=== PATIENT | female | born 1990 | race African-American/Black ===

== ENCOUNTER 2016-09-12 01:10 | Emergency (ER) | payer SELFPAY ==
[2016-09-12 01:21] VITALS: BP 115/68
[2016-09-12] MEDS ORDERED: Penicillin V Potassium 500 MG Tab PO ONE (01:39)
[2016-09-12] MEDS ORDERED: Naproxen 500 MG Tab PO ONE (01:40)
--- NOTE | 2016-09-12 01:44 | EDM.PDOC ---
ED HPI GENERAL MEDICAL PROBLEM - General Chief Complaint: ENT Problem Stated Complaint: TOOTHACHE Time Seen by Provider: 09/12/16 01:24 Source of Information: Reports: Patient, Old Records, RN Notes Reviewed History Limitations: Reports: No Limitations - History of Present Illness INITIAL COMMENTS - FREE TEXT/NARRATIVE: The patient states that she has a lower left toothache, a headache, sore throat , and a cough. She states that she has had a lower left toothache for about 2 months - medical records indicate that the patient was seen in this ED 06/02/2016 for a dental abscess to tooth #19. The abscess was drained, the patient started on Augmentin and ibuprofen, and the patient instructed to followup with a dentist within a week. The patient states that she has not, but that she has an appointment to see a dentist around October 01. She states that she has had a headache felt all over her head, pounding, for about 3 days. She states that she does not ordinarily suffer from headaches. She reports a sore throat for the past 3 days, and a cough occasionally productive of white sputum for the past 4-5 days. No recent fever, and she is afebrile here in the ED. The patient does not have a PCP. Left Lower Posterior Oral/Mouth Pain Score (Numeric/FACES): 10 - Related Data Allergies Allergy/AdvReac Type Severity Reaction Status Date / Time No Known Allergies Allergy Verified 09/12/16 01:16 Home Meds: Home Meds Naproxen 500 mg PO Q12H PRN #20 tablet 09/12/16 [Rx] Penicillin V Potassium [IJD: Penicillin V Potassium] 1 tab PO Q6H #40 tab [Rx] Past Medical History - Past Surgical History GI Surgical History: Reports: Appendectomy Social & Family History - Tobacco Use Smoking Status *Q: Current Every Day Smoker Years of Tobacco use: 5 Packs/Tins Daily: 0.5 - Caffeine Use Caffeine Use: Reports: Soda - Alcohol Use Alcohol Use History: Yes Days Per Week of Alcohol Use: 2 Number of Drinks Per Day: 10 Total Drinks Per Week: 20 Alcohol Use Frequency: Socially - Recreational Drug Use Recreational Drug Use: Yes Drug Use in Last 12 Months: No Recreational Drug Type: Reports: Marijuana/Hashish - Living Situation & Occupation Living situation: Reports: Single, Alone Occupation: Unemployed ED ROS ENT - Review of Systems Review Of Systems: See Below Constitutional: Reports: No Symptoms HEENT: Reports: Dental Pain (as per the HPI) Respiratory: Reports: Cough (as per the HPI) Cardiovascular: Reports: No Symptoms Endocrine: Reports: No Symptoms GI/Abdominal: Reports: No Symptoms : Reports: No Symptoms Musculoskeletal: Reports: No Symptoms Skin: Reports: No Symptoms Neurological: Reports: Headache (as per the HPI) Psychiatric: Reports: No Symptoms Hematologic/Lymphatic: Reports: No Symptoms Immunologic: Reports: No Symptoms ED EXAM, ENT - Physical Exam Exam: See Below Exam Limited By: No Limitations General Appearance: Alert, WD/WN, No Apparent Distress Eye Exam: Bilateral Eye: Normal Inspection Ears: Normal External Exam, Normal Canal, Hearing Grossly Normal, Normal TMs Nose: Normal Inspection, Normal Mucousa, No Blood Mouth/Throat: Normal Inspection, Normal Lips, Normal Oropharynx, Other (Tooth # 1 absent. Teeth #2, 3, 4, 5 with fillings. Teeth #12, 13, 14, 15 with fillings. Teeth #16, 17 absent. Tooth #19 (the tooth of concern) with filling. There is a gingival swelling at this site, but no pointing. Tooth # 20 with filling. Teeth #29, 30 with fillings. Tooth #32 absent. All teeth with EXTENSIVE plaque buildup.) Head: Atraumatic, Normocephalic Neck: Normal Inspection, Supple, Non-Tender, Full Range of Motion. No: Lymphadenopathy (L), Lymphadenopathy (R) Respiratory/Chest: No Respiratory Distress, Lungs Clear, Normal Breath Sounds, No Accessory Muscle Use Cardiovascular: Normal Peripheral Pulses, Regular Rate, Rhythm, No Gallop, No JVD, No Murmur, No Rub Neurological: Alert, Normal Cognition Psychiatric: Normal Affect Skin: Warm, Dry, Intact, Normal Color, No Rash Course - Vital Signs Last Recorded V/S: Last Vital Signs Temp 36.9 C 09/12/16 01:17 Pulse 95 09/12/16 01:17 Resp 18 09/12/16 01:17 BP 115/68 09/12/16 01:17 Pulse Ox 99 09/12/16 01:17 - Orders/Labs/Meds Orders: Active Orders 24 hr Category Date Time Status CULTURE STREP A CONFIRMATION [RM] Stat Lab 09/12/16 01:37 Results STREP SCRN A RAPID W CULT CONF [RM] Stat Lab 09/12/16 01:37 Results Meds: Medications Discontinued Medications Generic Name Dose Route Start Last Admin Trade Name Frieda PRN Reason Stop Dose Admin Naproxen 500 mg 09/12/16 01:40 09/12/16 01:43 Naprosyn PO 09/12/16 01:41 500 mg ONETIME ONE Administration Penicillin V Potassium 500 mg 09/12/16 01:39 09/12/16 01:43 Veetids PO 09/12/16 01:40 500 mg ONETIME ONE Administration - Re-Assessments/Exams Free Text/Narrative Re-Assessment/Exam: 09/12/16 02:16 Rapid strep is negative. The patient will be discharged home with a list of dentists that she can followup with. I will e-prescribe penicillin and naproxen. Departure - Departure Time of Disposition: 02:16 Disposition: Home, Self-Care 01 Condition: good Clinical Impression: Dental infection, Headache, Sore throat, Cough - Discharge Information Forms: ED Department Discharge Additional Instructions: You were seen in the emergency room for a lower left toothache, headache, sore throat, and cough. On examination, you have an infection of tooth #19. You have been started on the antibiotic penicillin. Take one tablet every 6 hours, as prescribed. Finish the entire prescription unless told otherwise by a dentist. You have been started on the pain medicine and naproxen. Take one tablet every 12 hours, with food, as needed for pain. A rapid strep test was negative. You do not have strep throat. Your lungs are clear, and her oxygen saturation is normal. You do not have pneumonia. Firstly, there are no good medicines to treat sore throats or cough. We do not recommend you take any [id number] cough or cold remedies - they simply don 't work. It is IMPERATIVE that you followup with a dentist within 10 days. Your dental condition will not cure itself. If any other problems, please do not hesitate to return to the ER. - My Orders Last 24 Hours: My Active Orders 09/12/16 01:37 CULTURE STREP A CONFIRMATION [RM] Stat STREP SCRN A RAPID W CULT CONF [RM] Stat - Assessment/Plan Last 24 Hours: My Active Orders 09/12/16 01:37 CULTURE STREP A CONFIRMATION [RM] Stat STREP SCRN A RAPID W CULT CONF [RM] Stat
== END 2016-09-12 02:30 | disposition home or self-care (01) ==
LOC: JD.ED 01:10
DX: K04.7 Periapical abscess without sinus (principal); J02.9 Acute pharyngitis, unspecified; R51 Headache; F17.210 Nicotine dependence, cigarettes, uncomplicated; Z90.49 Acquired absence of other specified parts of digestive tract
CPT/HCPCS: 87081; 87430; 99283; A9270

== ENCOUNTER 2016-12-23 09:47 | Emergency (ER) | payer SELFPAY ==
--- NOTE | 2016-12-23 10:07 | EDM.PDOC ---
ED HPI GENERAL MEDICAL PROBLEM - General Chief Complaint: Drug or Alcohol Abuse Stated Complaint: VOMITING Time Seen by Provider: 12/23/16 09:58 - History of Present Illness INITIAL COMMENTS - FREE TEXT/NARRATIVE: 26-year-old female presents emergency room with severe nausea vomiting and believes she has alcohol poisoning. Patient had way too much to drink last night. For the last couple hours she's had significant nausea vomiting now she has severe dry heaves. She denies fevers or chills. No diarrhea or constipation. She has developed some discomfort in her abdomen after starting to throw up. Abdomen Pain Score (Numeric/FACES): 5 - Related Data Allergies Allergy/AdvReac Type Severity Reaction Status Date / Time No Known Allergies Allergy Verified 09/12/16 01:16 Past Medical History Other HEENT History: dental issues - Past Surgical History GI Surgical History: Reports: Appendectomy Social & Family History - Tobacco Use Smoking Status *Q: Current Every Day Smoker Years of Tobacco use: 5 Packs/Tins Daily: 0.5 Used Tobacco, but Quit: No - Caffeine Use Caffeine Use: Reports: Soda - Alcohol Use Days Per Week of Alcohol Use: 2 Number of Drinks Per Day: 10 Total Drinks Per Week: 20 - Recreational Drug Use Recreational Drug Use: Yes Drug Use in Last 12 Months: No Recreational Drug Type: Reports: Marijuana/Hashish - Living Situation & Occupation Living situation: Reports: Single, Alone Occupation: Unemployed ED ROS GENERAL - Review of Systems Review Of Systems: See Below Constitutional: Reports: No Symptoms Respiratory: Reports: No Symptoms Cardiovascular: Reports: No Symptoms GI/Abdominal: Reports: Abdominal Pain, Nausea, Vomiting. Denies: Constipation, Diarrhea : Reports: No Symptoms ED EXAM, GENERAL - Physical Exam Exam: See Below General Appearance: Mild Distress (From the Nausea vomiting) Head: Atraumatic, Normocephalic Neck: Normal Inspection, Supple, Non-Tender, Full Range of Motion Respiratory/Chest: No Respiratory Distress, Lungs Clear, Normal Breath Sounds Cardiovascular: Regular Rate, Rhythm, No Edema, No Murmur GI/Abdominal: Normal Bowel Sounds, Soft, Other (She has diffuse discomfort no rebound or guarding noted.) Course - Vital Signs Last Recorded V/S: Last Vital Signs Temp 35.8 C 12/23/16 09:52 Pulse 106 H 12/23/16 09:52 Resp 18 12/23/16 09:52 BP 131/100 H 12/23/16 09:52 Pulse Ox 100 12/23/16 09:52 - Orders/Labs/Meds Labs: Laboratory Tests 12/23/16 12/23/16 Range/Units 09:50 09:50 WBC 23.86 H (3.98-10.04) K/mm3 RBC 4.76 (3.98-5.22) M/mm3 Hgb 13.3 (11.2-15.7) gm/L Hct 40.3 (34.1-44.9) % MCV 84.7 (79.4-94.8) fl MCH 27.9 (25.6-32.2) pg MCHC 33.0 (32.2-35.5) g/dl RDW Std Deviation 40.8 (36.4-46.3) fL Plt Count 567 H (182-369) K/mm3 MPV 8.4 L (9.4-12.3) fl Neutrophils % (Manual) 88 H (40-60) % Band Neutrophils % 0 (0-10) % Lymphocytes % (Manual) 6 L (20-40) % Atypical Lymphs % 2 % Monocytes % (Manual) 4 (2-10) % Eosinophils % (Manual) 0 L (0.7-5.8) % Basophils % (Manual) 0 L (0.1-1.2) Platelet Estimate Increased Anisocytosis 1+ slight RBC Morph Comment Abnormal Sodium 139 (136-145) mEq/L Potassium 3.7 (3.5-5.1) mEq/L Chloride 100 (98-107) mEq/L Carbon Dioxide 19 L (21-32) mEq/L Anion Gap 23.7 H (5-15) BUN 15 (7-18) mg/dL Creatinine 1.1 H (0.55-1.02) mg/dL Est Cr Clr Drug Dosing 62.37 mL/min Estimated GFR (MDRD) > 60 (>60) mL/min BUN/Creatinine Ratio 13.6 L (14-18) Glucose 92 (74-106) mg/dL Calcium 9.3 (8.5-10.1) mg/dL Total Bilirubin 0.5 (0.2-1.0) mg/dL AST 36 (15-37) U/L ALT 27 (14-59) U/L Alkaline Phosphatase 23 L (46-116) U/L Total Protein 8.3 H (6.4-8.2) g/dl Albumin 4.8 (3.4-5.0) g/dl Globulin 3.5 gm/dL Albumin/Globulin Ratio 1.4 (1-2) Ethyl Alcohol 0.00 (0.00) gm% Meds: Medications Discontinued Medications Generic Name Dose Route Start Last Admin Trade Name Frieda PRN Reason Stop Dose Admin Lactated Ringer's 1,000 mls @ 999 mls/hr 12/23/16 10:08 12/23/16 10:17 Ringers, Lactated IV 12/23/16 11:08 999 mls/hr .BOLUS ONE Administration Ondansetron HCl 4 mg 12/23/16 10:08 12/23/16 10:16 Zofran IVPUSH 12/23/16 10:09 4 mg ONETIME ONE Administration Sucralfate 1 gm 12/23/16 11:21 12/23/16 11:28 Carafate PO 12/23/16 11:22 1 gm ONETIME ONE Administration - Re-Assessments/Exams Free Text/Narrative Re-Assessment/Exam: 12/23/16 11:42 Patient was doing much better after receiving a liter fluid 4 mg of Zofran. We did give her some Carafate to help with the burning sensation in her stomach and lower esophagus. Did discuss her elevated white count believe this is probably stress reaction but it is little in the high side for just this the patient agrees to return to the emergency room if not better in 1224 hrs. and will come in sooner if getting worse. Did offer the patient prescription for Zofran and she declined this. She wants to go home and get some sleep. Departure - Departure Time of Disposition: 11:39 Disposition: Home, Self-Care 01 Clinical Impression: Hangover effect - Discharge Information Referrals: PCP,None [Primary Care Provider] - Additional Instructions: Return to the emergency room with any questions problems worsening symptoms. Go home and get some sleep. Clear liquid diet for the next 12-24 hours then slowly advance as tolerated
[2016-12-23] MEDS ORDERED: Lactated Ringers 1,000 ML IV ONE (10:08)
[2016-12-23] MEDS ORDERED: Ondansetron 4 MG/2 ML SDV IVPUSH ONE (10:08)
[2016-12-23] MEDS ORDERED: Sucralfate Suspension 1 GM/10 ML Cup PO ONE (11:21)
[2016-12-23 11:52] VITALS: BP 117/76
== END 2016-12-23 11:45 | disposition home or self-care (01) ==
LOC: JD.ED 09:47
DX: F10.129 Alcohol abuse with intoxication, unspecified (principal); F17.210 Nicotine dependence, cigarettes, uncomplicated; Z90.49 Acquired absence of other specified parts of digestive tract
CPT/HCPCS: 36415; 80053; 85025; 96361; 96374; 99284; A9270; G0480; J2405; J7120

== ENCOUNTER 2017-02-11 13:58 | Emergency (ER) | payer SELFPAY ==
[2017-02-11 14:09] VITALS: BP 108/81
--- NOTE | 2017-02-11 15:41 | EDM.PDOC ---
ED HPI GENERAL MEDICAL PROBLEM - General Chief Complaint: Abdominal Pain Stated Complaint: ABDOMINAL PAIN/CRAMPING Time Seen by Provider: 02/11/17 14:06 Source of Information: Reports: Patient History Limitations: Reports: No Limitations - History of Present Illness INITIAL COMMENTS - FREE TEXT/NARRATIVE: The patient presents with lower abdominal pain and pelvic pain. This has been going on for a few days. She has no nausea, vomiting, dysuria or hematuria. She is 5 days late on her period. She is concerned she my be . She is usually regular. She still has her appendix and gallbladder. She says she has some light discharge. Onset: Gradual Duration: Day(s): Location: Reports: Abdomen Quality: Reports: Sharp Severity: Moderate Improves with: Reports: None Worsens with: Reports: None Associated Symptoms: Denies: Chest Pain, Fever/Chills, Nausea/Vomiting, Shortness of Breath Lower Abdomen Pain Score (Numeric/FACES): 5 - Related Data Allergies Allergy/AdvReac Type Severity Reaction Status Date / Time No Known Allergies Allergy Verified 09/12/16 01:16 Home Meds: Home Meds . [No Known Home Meds] 02/11/17 [History] Past Medical History Other HEENT History: dental issues - Past Surgical History GI Surgical History: Reports: Appendectomy Social & Family History - Family History Family Medical History: Noncontributory - Tobacco Use Smoking Status *Q: Current Every Day Smoker Years of Tobacco use: 13 Packs/Tins Daily: 1 Used Tobacco, but Quit: No - Caffeine Use Caffeine Use: Reports: Coffee, Soda - Alcohol Use Days Per Week of Alcohol Use: 2 Number of Drinks Per Day: 10 Total Drinks Per Week: 20 - Recreational Drug Use Recreational Drug Use: Yes Drug Use in Last 12 Months: No Recreational Drug Type: Reports: Cocaine, Marijuana/Hashish Recreational Drug Use Frequency: Daily - Living Situation & Occupation Living situation: Reports: Single, Alone Occupation: Unemployed ED ROS GENERAL - Review of Systems Review Of Systems: See Below Constitutional: Reports: No Symptoms HEENT: Reports: No Symptoms Respiratory: Reports: No Symptoms Cardiovascular: Reports: No Symptoms Endocrine: Reports: No Symptoms GI/Abdominal: Reports: Abdominal Pain. Denies: Nausea, Vomiting : Reports: No Symptoms Musculoskeletal: Reports: No Symptoms Skin: Reports: No Symptoms ED EXAM, GI/ABD - Physical Exam Exam: See Below Exam Limited By: No Limitations General Appearance: Alert, No Apparent Distress Ears: Normal External Exam Nose: Normal Inspection Head: Atraumatic, Normocephalic Neck: Normal Inspection Respiratory/Chest: No Respiratory Distress, Lungs Clear, Normal Breath Sounds Cardiovascular: Regular Rate, Rhythm, No Edema, No Murmur GI/Abdominal Exam: Soft, No Organomegaly, No Mass, Tender (Mild tenderness to the lower abdomen) Back Exam: Normal Inspection Course - Vital Signs Last Recorded V/S: Last Vital Signs Temp 97.6 F 02/11/17 14:03 Pulse 81 02/11/17 14:03 Resp 16 02/11/17 14:03 BP 108/81 02/11/17 14:03 Pulse Ox 99 02/11/17 14:03 - Orders/Labs/Meds Labs: Laboratory Tests 02/11/17 02/11/17 Range/Units 14:29 14:52 WBC 8.03 (3.98-10.04) K/mm3 RBC 4.58 (3.98-5.22) M/mm3 Hgb 12.9 (11.2-15.7) gm/L Hct 39.2 (34.1-44.9) % MCV 85.6 (79.4-94.8) fl MCH 28.2 (25.6-32.2) pg MCHC 32.9 (32.2-35.5) g/dl RDW Std Deviation 40.3 (36.4-46.3) fL Plt Count 479 H (182-369) K/mm3 MPV 8.3 L (9.4-12.3) fl Neut % (Auto) 60.3 (34.0-71.1) % Lymph % (Auto) 30.8 (19.3-51.7) % [place] % (Auto) 6.7 (4.7-12.5) % Eos % (Auto) 1.1 (0.7-5.8) Baso % (Auto) 0.7 (0.1-1.2) % Neut # (Auto) 4.84 (1.56-6.13) K/mm3 Lymph # (Auto) 2.47 (1.18-3.74) K/mm3 [place] # (Auto) 0.54 H (0.24-0.36) K/mm3 Eos # (Auto) 0.09 (0.04-0.36) K/mm3 Baso # (Auto) 0.06 (0.01-0.08) K/mm3 Sodium 141 (136-145) mEq/L Potassium 4.1 (3.5-5.1) mEq/L Chloride 106 (98-107) mEq/L Carbon Dioxide 27 (21-32) mEq/L Anion Gap 12.1 (5-15) BUN 13 (7-18) mg/dL Creatinine 1.1 H (0.55-1.02) mg/dL Est Cr Clr Drug Dosing 62.37 mL/min Estimated GFR (MDRD) > 60 (>60) mL/min BUN/Creatinine Ratio 11.8 L (14-18) Glucose 65 L (74-106) mg/dL Calcium 9.2 (8.5-10.1) mg/dL Total Bilirubin 0.8 (0.2-1.0) mg/dL AST 18 (15-37) U/L ALT 17 (14-59) U/L Alkaline Phosphatase 25 L (46-116) U/L Total Protein 7.2 (6.4-8.2) g/dl Albumin 3.9 (3.4-5.0) g/dl Globulin 3.3 gm/dL Albumin/Globulin Ratio 1.2 (1-2) Lipase 148 (73-393) U/L HCG, Quant < 1.0 mIU/mL - Re-Assessments/Exams Free Text/Narrative Re-Assessment/Exam: 02/11/17 15:44 Her CBC and CMP look good. Her HCG was negative. She had to go so she did not have time to give us a UA. I was going to offer a pelvic but she had to go. Departure - Departure Time of Disposition: 15:45 Disposition: Home, Self-Care 01 Condition: Good Clinical Impression: Lower abdominal pain - Discharge Information Referrals: PCP,None [Primary Care Provider] - Sudha Sanchez PA-C [Physician [employer]] - 1 Week Forms: ED Department Discharge Additional Instructions: Take tylenol or motrin for pain. Follow up with Sudha Sanchez within 1 week if you are not better. Please return if you are worse.
== END 2017-02-11 16:05 | disposition home or self-care (01) ==
LOC: JD.ED 13:58
DX: R10.30 Lower abdominal pain, unspecified (principal); F17.210 Nicotine dependence, cigarettes, uncomplicated; Z90.49 Acquired absence of other specified parts of digestive tract
CPT/HCPCS: 36415; 80053; 83690; 84702; 85025; 99282; 99284

== ENCOUNTER 2017-06-21 10:36 | Emergency (ER) | payer SELFPAY ==
[2017-06-21 10:47] VITALS: BP 117/100
[2017-06-21] MEDS ORDERED: Ondansetron 4 MG Tab.DIS PO ONE (12:13)
[2017-06-21] MEDS ORDERED: Acetaminophen/HYDROcodone 325-5 MG Tab PO ONE (12:13)
--- NOTE | 2017-06-21 12:16 | EDM.PDOC ---
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 Increasing pain throughout the course week. Pressure with ambulating. History of ovarian cysts left-sided. Last menstrual cycle was 03 June with no abnormalities. History of HPV and Chlamydia. Denies Fever, chills, painful urination, nausea, vomiting, and diarrhea. pelvic region Pain Score (Numeric/FACES): 8 - Related Data Allergies Allergy/AdvReac Type Severity Reaction Status Date / Time No Known Allergies Allergy Verified 06/21/17 10:47 Home Meds: Home Meds metroNIDAZOLE [Flagyl] 500 mg PO Q12H #14 tab 06/21/17 [Rx] Past Medical History - Past Health History Medical/Surgical History: Denies Medical/Surgical History Other HEENT History: dental issues Other Genitourinary History: ovarian cyst - Past Surgical History GI Surgical History: Reports: Appendectomy Social & Family History - Family History Family Medical History: Noncontributory - Tobacco Use Smoking Status *Q: Current Every Day Smoker Years of Tobacco use: 5 Packs/Tins Daily: 1 Used Tobacco, but Quit: No - Caffeine Use Caffeine Use: Reports: Soda - Alcohol Use Days Per Week of Alcohol Use: 2 Number of Drinks Per Day: 10 Total Drinks Per Week: 20 - Recreational Drug Use Recreational Drug Use: Yes Drug Use in Last 12 Months: No Recreational Drug Type: Reports: Marijuana/Hashish Recreational Drug Use Frequency: Daily Recreational Drug Last Use: 06/21/17 - Living Situation & Occupation Living situation: Reports: Single, Alone Occupation: Unemployed ED ROS GENERAL - Review of Systems Review Of Systems: ROS reveals no pertinent complaints other than HPI. ED EXAM, RENAL/ - Physical Exam Exam: See Below Exam Limited By: Intoxication General Appearance: Alert, WD/WN, No Apparent Distress Ears: Hearing Grossly Normal Nose: Normal Inspection Throat/Mouth: Normal Inspection, Normal Oropharynx, Normal Voice, No Airway Compromise Head: Atraumatic, Normocephalic Neck: Normal Inspection, Supple, Non-Tender Respiratory/Chest: No Respiratory Distress, Lungs Clear, Normal Breath Sounds, No Accessory Muscle Use, Chest Non-Tender Cardiovascular: Normal Peripheral Pulses, Regular Rate, Rhythm, No Murmur GI/Abdominal: Normal Bowel Sounds, Soft, No Organomegaly, No Distention, Tender (right adnexa and suprapubic region. ) (Female) Exam: Normal External Exam, Adnexal Tenderness (Right sided), Vaginal Discharge (White, watery). No: Cervical Dilatation, Cervical Discharge , Cervical Fluid, Cervix Motion Tenderness, Vaginal Lesions, Vaginal Tears Back Exam: Normal Inspection. No: CVA Tenderness (L), CVA Tenderness (R) Neurological: Alert, Oriented, CN II-XII Intact, Normal Cognition, No Motor/ Sensory Deficits Psychiatric: Normal Affect, Anxious Skin Exam: Warm, Dry, Intact, Normal Color, No Rash Course - Vital Signs Last Recorded V/S: Last Vital Signs Temp 98.3 F 06/21/17 10:43 Pulse 100 06/21/17 10:43 Resp 18 06/21/17 10:43 BP 117/100 H 06/21/17 10:43 Pulse Ox 100 06/21/17 10:43 Orthostatic Blood Pressure [ 110/77 Standing] Orthostatic Blood Pressure [ 115/71 Sitting] Orthostatic Blood Pressure [ 110/73 Supine] - Orders/Labs/Meds Labs: Laboratory Tests 06/21/17 06/21/17 06/21/17 Range/Units 10:55 10:55 12:40 WBC 15.75 H (3.98-10.04) K/mm3 RBC 4.92 (3.98-5.22) M/mm3 Hgb 13.7 (11.2-15.7) gm/L Hct 41.9 (34.1-44.9) % MCV 85.2 (79.4-94.8) fl MCH 27.8 (25.6-32.2) pg MCHC 32.7 (32.2-35.5) g/dl RDW Std Deviation 41.6 (36.4-46.3) fL Plt Count 452 H (182-369) K/mm3 MPV 8.1 L (9.4-12.3) fl Neut % (Auto) 76.0 H (34.0-71.1) % Lymph % (Auto) 18.3 L (19.3-51.7) % Hancock % (Auto) 4.6 L (4.7-12.5) % Eos % (Auto) 0.4 L (0.7-5.8) Baso % (Auto) 0.4 (0.1-1.2) % Neut # (Auto) 11.97 H (1.56-6.13) K/mm3 Lymph # (Auto) 2.88 (1.18-3.74) K/mm3 Hancock # (Auto) 0.72 H (0.24-0.36) K/mm3 Eos # (Auto) 0.07 (0.04-0.36) K/mm3 Baso # (Auto) 0.07 (0.01-0.08) K/mm3 Sodium (136-145) mEq/L Potassium (3.5-5.1) mEq/L Chloride (98-107) mEq/L Carbon Dioxide (21-32) mEq/L Anion Gap (5-15) BUN (7-18) mg/dL Creatinine (0.55-1.02) mg/dL Est Cr Clr Drug Dosing mL/min Estimated GFR (MDRD) (>60) mL/min BUN/Creatinine Ratio (14-18) Glucose (74-106) mg/dL Calcium (8.5-10.1) mg/dL Total Bilirubin (0.2-1.0) mg/dL AST (15-37) U/L ALT (14-59) U/L Alkaline Phosphatase (46-116) U/L C-Reactive Protein (<1.0) mg/dL Total Protein (6.4-8.2) g/dl Albumin (3.4-5.0) g/dl Globulin gm/dL Albumin/Globulin Ratio (1-2) Urine Color Yellow (Yellow) Urine Appearance Clear (Clear) Urine pH 6.0 (5.0-8.0) Ur Specific [place] > or = 1.030 (1.005-1.030) Urine Protein 1+ H (Negative) Urine Glucose (UA) Negative (Negative) Urine Ketones 3+ H (Negative) Urine Occult Blood 1+ H (Negative) Urine Nitrite Negative (Negative) Urine Bilirubin 1+ H (Negative) Urine Urobilinogen 1.0 (0.2-1.0) Ur Leukocyte Esterase Negative (Negative) Urine RBC 5-10 H (0-5) /hpf Urine WBC 0-5 (0-5) /hpf Ur Epithelial Cells 5-10 H (0-5) /hpf Urine Bacteria Few (FEW) /hpf Urine Mucus Moderate H (FEW) /hpf Urine HCG, Qual Negative (NEGATIVE) C trachomatis DNA (PCR) N gonorrhoeae DNA (PCR) 06/21/17 06/21/17 Range/Units 12:40 13:30 WBC (3.98-10.04) K/mm3 RBC (3.98-5.22) M/mm3 Hgb (11.2-15.7) gm/L Hct (34.1-44.9) % MCV (79.4-94.8) fl MCH (25.6-32.2) pg MCHC (32.2-35.5) g/dl RDW Std Deviation (36.4-46.3) fL Plt Count (182-369) K/mm3 MPV (9.4-12.3) fl Neut % (Auto) (34.0-71.1) % Lymph % (Auto) (19.3-51.7) % Hancock % (Auto) (4.7-12.5) % Eos % (Auto) (0.7-5.8) Baso % (Auto) (0.1-1.2) % Neut # (Auto) (1.56-6.13) K/mm3 Lymph # (Auto) (1.18-3.74) K/mm3 Hancock # (Auto) (0.24-0.36) K/mm3 Eos # (Auto) (0.04-0.36) K/mm3 Baso # (Auto) (0.01-0.08) K/mm3 Sodium 139 (136-145) mEq/L Potassium 3.9 (3.5-5.1) mEq/L Chloride 102 (98-107) mEq/L Carbon Dioxide 22 (21-32) mEq/L Anion Gap 18.9 H (5-15) BUN 9 (7-18) mg/dL Creatinine 0.9 (0.55-1.02) mg/dL Est Cr Clr Drug Dosing 76.23 mL/min Estimated GFR (MDRD) > 60 (>60) mL/min BUN/Creatinine Ratio 10.0 L (14-18) Glucose 73 L (74-106) mg/dL Calcium 9.3 (8.5-10.1) mg/dL Total Bilirubin 0.6 (0.2-1.0) mg/dL AST 18 (15-37) U/L ALT 23 (14-59) U/L Alkaline Phosphatase 23 L (46-116) U/L C-Reactive Protein < 0.2 (<1.0) mg/dL Total Protein 8.1 (6.4-8.2) g/dl Albumin 4.5 (3.4-5.0) g/dl Globulin 3.6 gm/dL Albumin/Globulin Ratio 1.3 (1-2) Urine Color (Yellow) Urine Appearance (Clear) Urine pH (5.0-8.0) Ur Specific Kent (1.005-1.030) Urine Protein (Negative) Urine Glucose (UA) (Negative) Urine Ketones (Negative) Urine Occult Blood (Negative) Urine Nitrite (Negative) Urine Bilirubin (Negative) Urine Urobilinogen (0.2-1.0) Ur Leukocyte Esterase (Negative) Urine RBC (0-5) /hpf Urine WBC (0-5) /hpf Ur Epithelial Cells (0-5) /hpf Urine Bacteria (FEW) /hpf Urine Mucus (FEW) /hpf Urine HCG, Qual (NEGATIVE) C trachomatis DNA (PCR) Not detected N gonorrhoeae DNA (PCR) Not detected Meds: Medications Discontinued Medications Generic Name Dose Route Start Last Admin Trade Name Freq PRN Reason Stop Dose Admin Hydrocodone Bitart/Acetaminophen 1 tab 06/21/17 12:13 06/21/17 12:33 R[place]y 325-5 Mg PO 06/21/17 12:14 1 tab ONETIME ONE Administration Azithromycin 1,000 mg 06/21/17 15:23 06/21/17 15:40 Zithromax PO 06/21/17 15:24 1,000 mg ONETIME ONE Administration Ceftriaxone Sodium 250 mg/ 0 mg 06/21/17 15:30 06/21/17 15:42 Lidocaine HCl 0.5 ml IM Not Given Q24H JACQUELINE Metronidazole 500 mg 06/21/17 15:23 06/21/17 15:42 Flagyl PO 06/21/17 15:24 500 mg ONETIME ONE Administration Ondansetron HCl 4 mg 06/21/17 12:13 06/21/17 12:34 Zofran Odt PO 06/21/17 12:14 4 mg ONETIME ONE Administration - Re-Assessments/Exams Free Text/Narrative Re-Assessment/Exam: UA and test were obtained prior to evaluating. UA came back positive for blood with no signs of infection. HCG was negative. Patient does have some right adnexal tenderness with history of ovarian cyst. She also has some pain to the pelvic region with ambulation with abnormal discharged on Saturday after intercourse. She does have a history of gonorrhea and chlamydia. Order basic labs including: CBC, chem 14, blood prep, GC/Chlamydia by PCR, and CRP. 13:30 Bimanual and speculum exam done. Noted right adenexal tenderness, watery white discharge. No other abnormalities. Aaliyah Parker PA-C performed the exam. Labs reviewed: White blood cell count elevated 15.75, hemoglobin 13.7, platelet count 452, neutrophil number is 76.0, neutrophil number is 11.97. Chemistry panel is essentially normal. CRP less than 0.2. UA indicated 1+ protein, 3+ ketones, 1+ occult blood, 1+ bilirubin, rbc's 5-10, epithelial cells 5-10, mucus moderate, hCG was negative. She is not on her menstrual cycle. She has no history of kidney stones. Ultrasound impression:, Acute cyst most likely hemorrhagic with in both ovaries measuring 3.5 cm on the right and 3.1 cm is on the left. Right-sided cyst likely leaking as there isn't some right sided adnexal fluid. No additional abnormalities identified on pelvic ultrasound exam. Orthostatic vitals were obtained and were negative. Wet prep did indicate clue cells moderate amount. No yeast or trichomonas. 06/21/17 15:[address] Obregon. Agreed rocephin 250mg IM and azithromycin 1 gram po and flagyl 500mg PO. Suggested asking patient about plan B. F/U with Dr. Obregon next TR. 06/21/17 15:37 Patient refuses Plan B option. Patient refused rocephin and azithromycin. Departure - Departure Time of Disposition: 15:29 Disposition: Home, Self-Care 01 Condition: Fair Clinical Impression: Bacterial vaginosis, Hemorrhagic cyst of right ovary, Adnexal pain - Discharge Information Prescriptions: metroNIDAZOLE [Flagyl] 500 mg PO Q12H #14 tab Instructions: Bacterial Vaginosis, [id number], Ovarian Cyst, [id number] Referrals: PCP,None [Primary Care Provider] - Forms: ED Department Discharge Additional Instructions: As discussed wet prep was positive for bacterial vaginosis treatment is Flagyl one tab twice a day for 7 days. In addition ultrasound revealed complicated cyst most likely hemorrhagic within both ovaries with leaking noted from the right side. Treatment is anti-inflammatories such as ibuprofen 600 mg every 6 hours by mouth for pain take with food. In addition you received Rocephin and azithromycin while in the ED prophylactically to treat gonorrhea/chlamydia. Refrain from sexual intercourse until evaluated by Dr. Obregon this coming . Call his office on Saturday to make an appointment. Turn to the ED if he did have any worsening symptoms. No alcohol for the next 10 days.
--- NOTE | 2017-06-21 15:00 | US ---
Pelvic ultrasound: Multiple real-time images were obtained transvaginally. Comparison: No prior pelvic ultrasound. Uterus is anteverted. No myometrial abnormality is seen. Endometrial thickness measures up to 8 mm. Small amount of free fluid is seen within the right adnexa. Complicated cyst is noted within the right ovary measuring 3.5 cm likely representing hemorrhagic cyst. Left ovary shows a homogeneous abnormality measuring 3.1 cm felt to represent an additional hemorrhagic cyst. Measurements: Uterus: Length 5.2 cm, AP height 2.5 cm, transverse width 3.3 cm Right ovary: 4.3 x 3.5 by 4.1 cm Left ovary: 3.3 x 2.9 x 3.9 cm Impression: 1. Complicated cyst most likely hemorrhagic within both ovaries measuring 3.5 cm on the right and 3.1 cm on the left. Right-sided cyst likely leaking as there is some right-sided adnexal fluid. 2. No additional abnormality is identified on pelvic ultrasound exam. Diagnostic code #3
[2017-06-21 15:17] LABS: C. TRACHOMATIS BY PCR NOT DETECTED; N. GONORRHOEAE BY PCR NOT DETECTED
[2017-06-21] MEDS ORDERED: Azithromycin 250 MG Tab PO ONE (15:23)
[2017-06-21] MEDS ORDERED: metroNIDAZOLE 500 MG Tab PO ONE (15:23)
[2017-06-21] MEDS ORDERED: cefTRIAXone 250 MG, Lidocaine 1% 0.5 ML IM SCH ×2 (15:30)
== END 2017-06-21 15:55 | disposition home or self-care (01) ==
LOC: JD.ED 10:36
DX: N76.0 Acute vaginitis (principal); N83.202 Unspecified ovarian cyst, left side; N83.201 Unspecified ovarian cyst, right side; F17.210 Nicotine dependence, cigarettes, uncomplicated
CPT/HCPCS: 36415; 76830; 80053; 81001; 81025; 85025; 86140; 87210; 87491; 87591; 87808; 99284; A9270

== ENCOUNTER 2017-10-25 22:03 | Emergency (ER) | payer SELFPAY ==
[2017-10-25] MEDS ORDERED: LORazepam 1 MG Tab PO ONE (22:51)
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
== END 2017-10-25 23:05 | disposition home or self-care (01) ==
LOC: JD.ED 22:03
DX: T65.891A Toxic effect of other specified substances, accidental (unintentional), initial encounter (principal); L24.4 Irritant contact dermatitis due to drugs in contact with skin; F41.9 Anxiety disorder, unspecified
CPT/HCPCS: 99283; A9270; 99284

== ENCOUNTER 2018-07-25 12:24 | Emergency (ER) | payer SELFPAY ==
[2018-07-25 12:45] VITALS: BP 123/76
[2018-07-25] MEDS ORDERED: Proparacaine 0.5% Ophth Soln 15 ML Bottle EYELF ONE ×2 (12:45→12:50)
[2018-07-25] MEDS ORDERED: Fluorescein 0.6 MG Ophth Strip EYELF ONE (12:46)
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
[2018-07-25] MEDS ORDERED: Ketorolac 0.5% Ophth Soln 5 ML Bottle EYELF ONE (13:08)
[2018-07-25] MEDS ORDERED: Cyclopentolate 1% Opth Soln 2 ML Bottle EYELF ONE (13:10)
[2018-07-25] MEDS ORDERED: Ciprofloxacin 0.3% Ophth Soln 5 ML Bottle EYELF ONE (13:15)
== END 2018-07-25 15:05 | disposition home or self-care (01) ==
LOC: JD.ED 12:24
DX: S05.02XA Injury of conjunctiva and corneal abrasion without foreign body, left eye, initial encounter (principal); S05.12XA Contusion of eyeball and orbital tissues, left eye, initial encounter; F17.210 Nicotine dependence, cigarettes, uncomplicated; W22.8XXA Striking against or struck by other objects, initial encounter
CPT/HCPCS: 99283; A9270; 99284

== ENCOUNTER 2019-03-23 10:07 | Emergency (ER) | payer MEDICAID ==
[2019-03-23 10:24] VITALS: BP 155/94; PULSE 79
--- NOTE | 2019-03-23 10:36 | EDM.PDOC ---
ED HPI GENERAL MEDICAL PROBLEM - General Chief Complaint: General Stated Complaint: VOMITING Time Seen by Provider: 03/23/19 10:36 - History of Present Illness INITIAL COMMENTS - FREE TEXT/NARRATIVE: 28-year-old female presents emergency room with abdominal pain nausea vomiting. Patient was discharged couple days ago from this hospital after having a right salpingo-oophorectomy secondary to a tubo-ovarian abscess. She's currently taking metronidazole for bacterial vaginosis. Around 4:00 this morning the patient developed fairly severe nausea vomiting vomiting every few minutes worsening abdominal discomfort burning in her throat. She's not aware of any fevers or chills. She states everything hurts all over she cannot be more concise. Abdomen Pain Score (Numeric/FACES): 10 - Related Data Allergies Allergy/AdvReac Type Severity Reaction Status Date / Time No Known Allergies Allergy Verified 03/18/19 06:19 Home Meds: Home Meds Acetaminophen/oxyCODONE [Percocet 325-5 MG] 2 tab PO Q4H PRN #20 tablet [Rx] Bisacodyl [Dulcolax] 10 mg RECTAL BID PRN supp 03/20/19 [Rx] Docusate Sodium [Colace] 100 mg PO BID PRN cap 03/20/19 [Rx] Doxycycline [Vibramycin] 100 mg PO Q12HR 10 Days #20 cap 03/20/19 [Rx] Ibuprofen [Motrin] 600 mg PO Q6H PRN tablet 03/20/19 [Rx] Ondansetron [Zofran ODT] 4 mg PO Q6H PRN #20 tab.dis 03/20/19 [Rx] Polyethylene Glycol 3350 [MiraLAX] 17 gm PO BEDTIME PRN packet 03/20/19 [Rx] Simethicone 80 mg PO Q4H PRN tab.chew 03/20/19 [Rx] metroNIDAZOLE [Flagyl] 500 mg PO Q12H 10 Days #20 tab 03/20/19 [Rx] LORazepam [Ativan] 0.5 mg PO Q12H PRN #10 tablet 03/23/19 [Rx] Potassium Chloride [Klor-Con 10] 10 meq PO Q8H #9 tab.er 03/23/19 [Rx] Past Medical History - Past Health History Medical/Surgical History: Denies Medical/Surgical History Other HEENT History: dental issues Genitourinary History: Reports: STD (History of gonorrhea and chlamydia) Other Genitourinary History: ovarian cyst Other COMPLAINT INSPECTOR History: HPV - Past Surgical History GI Surgical History: Reports: Appendectomy (Ruptured appendicitis) Social & Family History - Family History Family Medical History: Noncontributory - Caffeine Use Caffeine Use: Reports: None - Living Situation & Occupation Living situation: Reports: Single, Alone Occupation: Unemployed ED ROS GENERAL - Review of Systems Review Of Systems: See Below Constitutional: Reports: Malaise, Weakness, Fatigue HEENT: Reports: Other (Return in her throat that started after vomiting several times) Respiratory: Reports: No Symptoms Cardiovascular: Reports: No Symptoms GI/Abdominal: Reports: Abdominal Pain, Diarrhea, Nausea, Vomiting : Reports: Other Musculoskeletal: Reports: No Symptoms Skin: Reports: No Symptoms Neurological: Reports: No Symptoms Psychiatric: Reports: Anxiety ED EXAM, GENERAL - Physical Exam Exam: See Below Exam Limited By: No Limitations General Appearance: Alert, No Apparent Distress Head: Atraumatic, Normocephalic Neck: Normal Inspection, Supple, Non-Tender, Full Range of Motion. No: Lymphadenopathy (L), Lymphadenopathy (R) Respiratory/Chest: No Respiratory Distress, Lungs Clear, Normal Breath Sounds Cardiovascular: Normal Peripheral Pulses, Regular Rate, Rhythm, No Edema GI/Abdominal: Abnormal Bowel Sounds (Bowel sounds are present but diminished), Other (She is exquisitely tender all over the abdomen really hard to evaluate the weight of the stethoscope on her abdomen caused her significant distress) Back Exam: Normal Inspection. No: CVA Tenderness (L), CVA Tenderness (R) Extremities: Normal Inspection, No Pedal Edema Neurological: Alert, Oriented Psychiatric: Anxious Course - Vital Signs Last Recorded V/S: Last Vital Signs Temp 36.2 C 03/23/19 10:19 Pulse 79 03/23/19 10:19 Resp 18 03/23/19 10:19 BP 155/94 H 03/23/19 10:19 Pulse Ox 98 03/23/19 10:19 - Orders/Labs/Meds Orders: Active Orders 24 hr Category Date Time Status Chest 2V [CR] Stat Exams 03/23/19 16:15 Taken Sodium Chloride 0.9% [Saline Flush] Med 03/23/19 12:46 Active 10 ml FLUSH ONETIME PRN Sodium Chloride 0.9% [Saline Flush] Med 03/23/19 13:08 Active 10 ml FLUSH ONETIME PRN Medication Orders Sodium Chloride (Saline Flush) 10 ml FLUSH ONETIME PRN PRN Reason: IV FLUSH Last Admin: 03/23/19 13:46 Dose: 10 ml Sodium Chloride (Saline Flush) 10 ml FLUSH ONETIME PRN PRN Reason: IV FLUSH Last Admin: 03/23/19 13:09 Dose: 10 ml Labs: Laboratory Tests 03/23/19 03/23/19 03/23/19 Range/Units 10:30 10:30 10:30 WBC 13.78 H (3.98-10.04) K/mm3 RBC 4.08 (3.98-5.22) M/mm3 Hgb 11.1 L (11.2-15.7) gm/dl Hct 33.6 L (34.1-44.9) % MCV 82.4 (79.4-94.8) fl MCH 27.2 (25.6-32.2) pg MCHC 33.0 (32.2-35.5) g/dl RDW Std Deviation 37.6 (36.4-46.3) fL Plt Count 839 H D (182-369) K/mm3 MPV 8.2 L (9.4-12.3) fl Neutrophils % (Manual) 80 H (40-60) % Band Neutrophils % 0 (0-10) % Lymphocytes % (Manual) 11 L (20-40) % Atypical Lymphs % 0 % Monocytes % (Manual) 8 (2-10) % Eosinophils % (Manual) 1 (0.7-5.8) % Basophils % (Manual) 0 L (0.1-1.2) Platelet Estimate Increased RBC Morph Comment Normal Sodium 142 (136-145) mEq/L Potassium 3.1 L (3.5-5.1) mEq/L Chloride 103 (98-107) mEq/L Carbon Dioxide 21 (21-32) mEq/L Anion Gap 21.1 H (5-15) BUN 4 L (7-18) mg/dL Creatinine 0.8 (0.55-1.02) mg/dL Est Cr Clr Drug Dosing 84.28 mL/min Estimated GFR (MDRD) > 60 (>60) mL/min BUN/Creatinine Ratio 5.0 L (14-18) Glucose 107 H (74-106) mg/dL Calcium 9.1 (8.5-10.1) mg/dL Total Bilirubin 0.5 (0.2-1.0) mg/dL AST 20 (15-37) U/L ALT 18 (14-59) U/L Alkaline Phosphatase 35 L (46-116) U/L Total Protein 7.6 (6.4-8.2) g/dl Albumin 3.0 L (3.4-5.0) g/dl Globulin 4.6 gm/dL Albumin/Globulin Ratio 0.7 L (1-2) HCG, Qual Negative (NEGATIVE) Urine Color (Yellow) Urine Appearance (Clear) Urine pH (5.0-8.0) Ur Specific Mercer (1.005-1.030) Urine Protein (Negative) Urine Glucose (UA) (Negative) Urine Ketones (Negative) Urine Occult Blood (Negative) Urine Nitrite (Negative) Urine Bilirubin (Negative) Urine Urobilinogen (0.2-1.0) Ur Leukocyte Esterase (Negative) Urine RBC (0-5) /hpf Urine WBC (0-5) /hpf Ur Squamous Epith Cells (0-5) /hpf Urine Bacteria (FEW) /hpf Urine Mucus (FEW) /hpf 03/23/19 Range/Units 14:23 WBC (3.98-10.04) K/mm3 RBC (3.98-5.22) M/mm3 Hgb (11.2-15.7) gm/dl Hct (34.1-44.9) % MCV (79.4-94.8) fl MCH (25.6-32.2) pg MCHC (32.2-35.5) g/dl RDW Std Deviation (36.4-46.3) fL Plt Count (182-369) K/mm3 MPV (9.4-12.3) fl Neutrophils % (Manual) (40-60) % Band Neutrophils % (0-10) % Lymphocytes % (Manual) (20-40) % Atypical Lymphs % % Monocytes % (Manual) (2-10) % Eosinophils % (Manual) (0.7-5.8) % Basophils % (Manual) (0.1-1.2) Platelet Estimate RBC Morph Comment Sodium (136-145) mEq/L Potassium (3.5-5.1) mEq/L Chloride (98-107) mEq/L Carbon Dioxide (21-32) mEq/L Anion Gap (5-15) BUN (7-18) mg/dL Creatinine (0.55-1.02) mg/dL Est Cr Clr Drug Dosing mL/min Estimated GFR (MDRD) (>60) mL/min BUN/Creatinine Ratio (14-18) Glucose (74-106) mg/dL Calcium (8.5-10.1) mg/dL Total Bilirubin (0.2-1.0) mg/dL AST (15-37) U/L ALT (14-59) U/L Alkaline Phosphatase (46-116) U/L Total Protein (6.4-8.2) g/dl Albumin (3.4-5.0) g/dl Globulin gm/dL Albumin/Globulin Ratio (1-2) HCG, Qual (NEGATIVE) Urine Color Yellow (Yellow) Urine Appearance Clear (Clear) Urine pH 6.5 (5.0-8.0) Ur Specific Mercer 1.025 (1.005-1.030) Urine Protein 1+ H (Negative) Urine Glucose (UA) Negative (Negative) Urine Ketones 4+ H (Negative) Urine Occult Blood 1+ H (Negative) Urine Nitrite Negative (Negative) Urine Bilirubin Negative (Negative) Urine Urobilinogen 0.2 (0.2-1.0) Ur Leukocyte Esterase Negative (Negative) Urine RBC 10-20 H (0-5) /hpf Urine WBC 0-5 (0-5) /hpf Ur Squamous Epith Cells 0-5 (0-5) /hpf Urine Bacteria Few (FEW) /hpf Urine Mucus Not seen (FEW) /hpf Meds: Medications Generic Name Dose Route Start Last Admin Trade Name Freq PRN Reason Stop Dose Admin Sodium Chloride 10 ml 03/23/19 12:46 03/23/19 13:46 Saline Flush FLUSH 10 ml ONETIME PRN Administration IV FLUSH Sodium Chloride 10 ml 03/23/19 13:08 03/23/19 13:09 Saline Flush FLUSH 10 ml ONETIME PRN Administration IV FLUSH Discontinued Medications Generic Name Dose Route Start Last Admin Trade Name Freq PRN Reason Stop Dose Admin Hydromorphone HCl 0.5 mg 03/23/19 11:16 03/23/19 11:28 Dilaudid IVPUSH 03/23/19 11:17 0.5 mg ONETIME ONE Administration Lactated Ringer's 1,000 mls @ 999 mls/hr 03/23/19 11:15 03/23/19 11:27 Ringers, Lactated IV 03/23/19 12:15 999 mls/hr .BOLUS ONE Administration Potassium Chloride 10 meq/ 100 mls @ 100 mls/hr 03/23/19 12:45 03/23/19 14:07 Premix IV 03/23/19 14:44 100 mls/hr Q1H JACQUELINE Administration Iopamidol 100 ml 03/23/19 12:46 Isovue-300 (61%) IVPUSH 03/23/19 12:47 ONETIME ONE Iopamidol 100 ml 03/23/19 13:08 03/23/19 13:09 Isovue-300 (61%) IVPUSH 03/23/19 13:09 100 ml ONETIME ONE Administration Lorazepam 1 mg 03/23/19 12:44 03/23/19 12:56 Ativan IVPUSH 03/23/19 12:45 1 mg ONETIME ONE Administration Metoclopramide HCl 5 mg 03/23/19 11:16 03/23/19 11:27 Reglan IVPUSH 03/23/19 11:17 5 mg ONETIME ONE Administration Sucralfate 1 gm 03/23/19 14:23 03/23/19 14:33 Carafate PO 03/23/19 14:24 1 gm ONETIME ONE Administration - Re-Assessments/Exams Free Text/Narrative Re-Assessment/Exam: 03/23/19 12:40 Patient has not had much relief. Reviewed her labs her potassium is down we'll give her some IV potassium still unable to get an adequate abdominal exam will follow up with the abdominal pelvic CT. Her white count is a little higher than when she was discharged I don't know if this is significant or not. 03/23/19 16:14 Patient has a productive cough we'll check a chest x-ray. Earlier this afternoon to talk to Dr. Ying about the results of CT and she agreed to this really nothing concerning their the fluid in the pelvis is most likely postoperative in it to be expected. The patient has follow-up with Dr. Ying tomorrow at 10 AM and if nothing alarming shows up on the chest x-ray we will discharge her home. Patient is in agreement to this I will give her a few Ativan to help with her anxiety 03/23/19 17:01 Chest x-ray is unremarkable. Departure - Departure Time of Disposition: 17:01 Disposition: Home, Self-Care 01 Clinical Impression: Postoperative pain, Nausea, vomiting and diarrhea, Hypokalemia, Anxiety - Discharge Information Prescriptions: LORazepam [Ativan] 0.5 mg PO Q12H PRN #10 tablet PRN Reason: Anxiety Potassium Chloride [Klor-Con 10] 10 meq PO Q8H #9 tab.er Referrals: PCP,None [Primary Care Provider] - Forms: ED Department Discharge Additional Instructions: Return to emergency room if any questions problems or worsening symptoms. Follow-up with Dr. Ying tomorrow as scheduled. Use your Zofran one 4 times a day for the next 2 days in then go back to as needed. If you get that burning sensation again your throat try some Tums. You have been started on potassium take one 3 times a day for 3 days. Use the anxiety medication one twice a day for 2 days, then as needed. - My Orders Last 24 Hours: My Active Orders 03/23/19 12:46 Sodium Chloride 0.9% [Saline Flush] 10 ml FLUSH ONETIME PRN 03/23/19 13:08 Sodium Chloride 0.9% [Saline Flush] 10 ml FLUSH ONETIME PRN 03/23/19 16:15 Chest 2V [CR] Stat - Assessment/Plan Last 24 Hours: My Active Orders 03/23/19 12:46 Sodium Chloride 0.9% [Saline Flush] 10 ml FLUSH ONETIME PRN 03/23/19 13:08 Sodium Chloride 0.9% [Saline Flush] 10 ml FLUSH ONETIME PRN 03/23/19 16:15 Chest 2V [CR] Stat
[2019-03-23] MEDS ORDERED: Lactated Ringers 1,000 ML IV ONE (11:15)
[2019-03-23] MEDS ORDERED: HYDROmorphone 0.5 MG/0.5 ML Syringe IVPUSH ONE (11:16)
[2019-03-23] MEDS ORDERED: Metoclopramide 10 MG/2 ML SDV IVPUSH ONE (11:16)
[2019-03-23] MEDS ORDERED: LORazepam 2 MG/ML SDV IVPUSH ONE (12:44)
[2019-03-23] MEDS ORDERED: Iopamidol 612 MG/ML 100 ML Bottle IVPUSH ONE ×2 (12:46→13:08)
[2019-03-23] MEDS ORDERED: Sodium Chloride 0.9% 10 ML Syringe FLUSH PRN ×2 (12:46→13:08)
[2019-03-23] MEDS: Potassium Chloride 10 MEQ in Premix Bag 1 BAG IV SCH ×2 (12:56→14:07)
--- NOTE | 2019-03-23 13:44 | CT ---
CT abdomen and pelvis Technique: Multiple axial sections were obtained from above the dome of the diaphragm inferiorly through the pubic symphysis. Intravenous contrast was utilized. Oral contrast was refused by the patient. Delayed images were obtained through the bladder. Limitations: Lack of oral contrast diminishes evaluation of bowel and processes around the bowel. Comparison: Prior pelvic ultrasound study of 03/18/[address] abdomen and pelvis study of 03/18/19. Findings: Prior study showed a right sided pelvic cyst measuring 8.[address] exam and 7.1 cm on the ultrasound study. This is no longer seen. Please correlate if this represents cyst rupture or previous surgery. Air is noted within the abdominal wall presumably from previous surgery. Visualized lung bases show nothing acute. Liver contains no focal parenchymal abnormality. Spleen appears within normal limits. Adrenal glands show no nodule. Pancreas is within normal limits. Kidneys show symmetric contrast enhancement without hydronephrosis or mass. Aorta shows no aneurysm. Gallbladder contains no calcified gallstones. No retroperitoneal adenopathy or mesenteric abnormalities are seen. No other discrete pelvic abnormality is appreciated. Appendix cannot be visualized with certainty. Impression: 1. Cyst that was seen on prior pelvic ultrasound and CT exam is not seen on current exam either due to cyst rupture or surgical removal. 2. Fair amount of fluid within the pelvis. Uncertain if this is due to cyst rupture or could represent postoperative bleeding or other etiology of the fluid. 3. No additional abnormality is definitely appreciated on CT study of the abdomen and pelvis. Diagnostic code #3
[2019-03-23] MEDS ORDERED: Sucralfate Suspension 1 GM/10 ML Cup PO ONE (14:23)
--- NOTE | 2019-03-23 19:09 | CR ---
Chest: Two views of the chest were obtained. Comparison: Prior chest x-ray of 03/22/14. Heart size and mediastinum are normal. Lungs are clear. Bony structures are unremarkable. Impression: 1. Nothing acute is seen on two-view chest x-ray. Diagnostic code #1
== END 2019-03-23 17:27 | disposition home or self-care (01) ==
LOC: JD.ED 10:07
DX: G89.18 Other acute postprocedural pain (principal); E87.6 Hypokalemia; F41.9 Anxiety disorder, unspecified; R19.7 Diarrhea, unspecified; R11.2 Nausea with vomiting, unspecified
CPT/HCPCS: 36415; 71046; 74177; 80053; 81001; 84703; 85007; 85027; 96361; 96365; 96375; 99284; A9270; J1170; J2060; J2765; J3480; J7120; Q9967

== ENCOUNTER 2019-04-24 13:03 | Emergency (ER) | payer SELFPAY | END 2019-04-24 13:24 | disposition left against medical advice (07) | LOC: JD.ED 13:03 | DX: Z53.21 Procedure and treatment not carried out due to patient leaving prior to being seen by health care provider (principal) ==

== ENCOUNTER 2019-05-10 15:07 | Emergency (ER) | payer MEDICAID ==
[2019-05-10 16:09] VITALS: BP 112/78; PULSE 82
[2019-05-10] MEDS ORDERED: Sodium Chloride 0.9% 10 ML Syringe FLUSH PRN (16:49)
[2019-05-10] MEDS ORDERED: Ondansetron 4 MG/2 ML SDV IVPUSH ONE (16:49)
--- NOTE | 2019-05-10 16:51 | EDM.PDOC ---
ED HPI GENERAL MEDICAL PROBLEM - General Chief Complaint: Gastrointestinal Problem Stated Complaint: VOMITING Time Seen by Provider: 05/10/19 16:41 Source of Information: Reports: Patient, RN Notes Reviewed - History of Present Illness INITIAL COMMENTS - FREE TEXT/NARRATIVE: 28 yr old female with onset of abd pain, vomiting, diarrhea this past morning about 8 to 10 hrs ago. Pain is mainly mid and lower abd with cramping. Multiple episodes of vomiting and watery diarrha. Also has voiding dysuria. Hx of R ovarian removal about 6 weeks ago. - Related Data Allergies Allergy/AdvReac Type Severity Reaction Status Date / Time No Known Allergies Allergy Verified 05/10/19 16:09 Home Meds: Home Meds Ondansetron [Zofran ODT] 4 mg PO Q8HR PRN #7 tab.dis 05/10/19 [Rx] Past Medical History - Past Health History Medical/Surgical History: Denies Medical/Surgical History Other HEENT History: dental issues Genitourinary History: Reports: STD Other Genitourinary History: ovarian cyst Other TALENT COORDINATOR History: HPV - Past Surgical History GI Surgical History: Reports: Appendectomy Social & Family History - Family History Family Medical History: Noncontributory - Tobacco Use Smoking Status *Q: Unknown Ever Smoked - Caffeine Use Caffeine Use: Reports: None - Living Situation & Occupation Living situation: Reports: Single, Alone Occupation: Unemployed ED ROS GENERAL - Review of Systems Review Of Systems: See Below Constitutional: Denies: Fever, Chills HEENT: Reports: No Symptoms Respiratory: Denies: Shortness of Breath, Pleuritic Chest Pain Cardiovascular: Denies: Chest Pain GI/Abdominal: Reports: Abdominal Pain (primarily lower abd and mid pelvic), Diarrhea, Decreased Appetite, Nausea, Vomiting Musculoskeletal: Reports: No Symptoms Skin: Reports: No Symptoms Neurological: Reports: No Symptoms ED EXAM, GI/ABD - Physical Exam Exam: See Below General Appearance: Alert, Mild Distress Eyes: Bilateral: Normal Appearance Throat/Mouth: Normal Inspection, Normal Oropharynx Head: Atraumatic Neck: Supple Respiratory/Chest: No Respiratory Distress, Lungs Clear, Normal Breath Sounds Cardiovascular: Regular Rate, Rhythm GI/Abdominal Exam: Soft, Tender (diffuse tenderness mid and lower bilat abd). No: Guarding, Rebound Back Exam: No: CVA Tenderness (L), CVA Tenderness (R) Extremities: Normal Inspection, Normal Range of Motion Skin Exam: Warm, Dry, Normal Color Course - Vital Signs Last Recorded V/S: Last Vital Signs Temp 97.5 F 05/10/19 16:07 Pulse 82 05/10/19 16:07 Resp 16 05/10/19 16:07 BP 112/78 05/10/19 16:07 Pulse Ox 99 05/10/19 16:07 Orthostatic Blood Pressure [ 110/75 Standing] Orthostatic Blood Pressure [ 112/78 Supine] - Orders/Labs/Meds Orders: Active Orders 24 hr Category Date Time Status Peripheral IV Care [RC] . DIRECTED Care 05/10/19 16:49 Active Peripheral IV Insertion Adult [OM.PC] Stat Oth 05/10/19 16:49 Ordered Labs: Laboratory Tests 05/10/19 05/10/19 05/10/19 Range/Units 17:08 17:08 18:48 WBC 20.06 H (3.98-10.04) K/mm3 RBC 4.65 (3.98-5.22) M/mm3 Hgb 12.8 D (11.2-15.7) gm/dl Hct 39.0 (34.1-44.9) % MCV 83.9 (79.4-94.8) fl MCH 27.5 (25.6-32.2) pg MCHC 32.8 (32.2-35.5) g/dl RDW Std Deviation 41.4 (36.4-46.3) fL Plt Count 617 H D (182-369) K/mm3 MPV 8.4 L (9.4-12.3) fl Neut % (Auto) 88.0 H (34.0-71.1) % Lymph % (Auto) 8.5 L (19.3-51.7) % [place] % (Auto) 3.1 L (4.7-12.5) % Eos % (Auto) 0 L (0.7-5.8) Baso % (Auto) 0.1 (0.1-1.2) % Neut # (Auto) 17.63 H (1.56-6.13) K/mm3 Lymph # (Auto) 1.71 (1.18-3.74) K/mm3 [place] # (Auto) 0.62 H (0.24-0.36) K/mm3 Eos # (Auto) 0.01 L (0.04-0.36) K/mm3 Baso # (Auto) 0.03 (0.01-0.08) K/mm3 Manual Slide Review Abnormal smear Sodium 138 (136-145) mEq/L Potassium 3.8 (3.5-5.1) mEq/L Chloride 102 (98-107) mEq/L Carbon Dioxide 21 (21-32) mEq/L Anion Gap 18.8 H (5-15) BUN 14 (7-18) mg/dL Creatinine 0.8 (0.55-1.02) mg/dL Est Cr Clr Drug Dosing 84.28 mL/min Estimated GFR (MDRD) > 60 (>60) mL/min BUN/Creatinine Ratio 17.5 (14-18) Glucose 102 (74-106) mg/dL Calcium 9.5 (8.5-10.1) mg/dL Total Bilirubin 0.7 (0.2-1.0) mg/dL AST 22 (15-37) U/L ALT 27 (14-59) U/L Alkaline Phosphatase 24 L (46-116) U/L Total Protein 8.5 H (6.4-8.2) g/dl Albumin 4.7 (3.4-5.0) g/dl Globulin 3.8 gm/dL Albumin/Globulin Ratio 1.2 (1-2) Lipase 65 L (73-393) U/L Urine Color Yellow (Yellow) Urine Appearance Clear (Clear) Urine pH 7.0 (5.0-8.0) Ur Specific [place] > or = 1.030 (1.005-1.030) Urine Protein 2+ H (Negative) Urine Glucose (UA) Negative (Negative) Urine Ketones 2+ H (Negative) Urine Occult Blood Trace-intact H (Negative) Urine Nitrite Negative (Negative) Urine Bilirubin Negative (Negative) Urine Urobilinogen 1.0 (0.2-1.0) Ur Leukocyte Esterase Negative (Negative) Urine RBC 5-10 H (0-5) /hpf Urine WBC 0-5 (0-5) /hpf Ur Squamous Epith Cells 0-5 (0-5) /hpf Urine Bacteria Rare (FEW) /hpf Urine Mucus Few (FEW) /hpf Meds: Medications Discontinued Medications Generic Name Dose Route Start Last Admin Trade Name Freq PRN Reason Stop Dose Admin Hydromorphone HCl 0.5 mg 05/10/19 19:39 05/10/19 19:56 Dilaudid IVPUSH 05/10/19 19:40 0.5 mg ONETIME ONE Administration Sodium Chloride 1,000 mls @ 999 mls/hr 05/10/19 17:00 05/10/19 17:05 Normal Saline IV 999 mls/hr ONETIME JACQUELINE Administration Metoclopramide HCl 5 mg 05/10/19 19:39 05/10/19 19:56 Reglan IVPUSH 05/10/19 19:40 5 mg ONETIME ONE Administration Ondansetron HCl 4 mg 05/10/19 16:49 05/10/19 17:04 Zofran IVPUSH 05/10/19 16:50 4 mg ONETIME ONE Administration Sodium Chloride 10 ml 05/10/19 16:49 05/10/19 17:34 Saline Flush FLUSH 10 ml ASDIRECTED PRN Administration Keep Vein Open - Re-Assessments/Exams Free Text/Narrative Re-Assessment/Exam: 05/10/19 19:59 Feeling better, WBC elevated but Ua neg for infection. 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 She has had 5 or 6 episodes of watery diarrhea today and also as noted multiple episodes of vomiting. I have discussed consideration to do abd CT to R/ O surgical abd although clinically she does not have a surgical abd. Pt does not want a CT done this evening. Prefers to go home on clear liquids. Will come back if symptoms worsening or if not getting better as expected. Departure - Departure Time of Disposition: 19:44 Disposition: Home, Self-Care 01 Condition: Fair Clinical Impression: Vomiting, Diarrhea, Abdominal pain - Discharge Information Prescriptions: Ondansetron [Zofran ODT] 4 mg PO Q8HR PRN #7 tab.dis PRN Reason: Nausea/Vomiting Instructions: Diarrhea, Adult, Vomiting, Adult Referrals: PCP,None [Primary Care Provider] - Forms: ED Department Discharge Additional Instructions: clear liquids only until tomorrow afternoon. Than very careful bland diet as tolerated if not having further nausea, vomiting or diarrhea. Zofran if needed for further nausea or vomiting. Follow up clinic if not much better within 1 to 2 days as expected. Return to ED if symptoms worsening. Sepsis Event Note - Evaluation Sepsis Screening Result: No Definite Risk - Focused Exam Date Exam was Performed: 05/11/19 Time Exam was Performed: 14:53 - My Orders Last 24 Hours: My Active Orders 05/10/19 16:49 Peripheral IV Care [RC] . DIRECTED Peripheral IV Insertion Adult [OM.PC] Stat - Assessment/Plan Last 24 Hours: My Active Orders 05/10/19 16:49 Peripheral IV Care [RC] . DIRECTED Peripheral IV Insertion Adult [OM.PC] Stat
[2019-05-10] MEDS ORDERED: Sodium Chloride 0.9% 1,000 ML IV SCH (17:00)
[2019-05-10] MEDS ORDERED: Metoclopramide 10 MG/2 ML SDV IVPUSH ONE (19:39)
[2019-05-10] MEDS ORDERED: HYDROmorphone 0.5 MG/0.5 ML Syringe IVPUSH ONE (19:39)
== END 2019-05-10 20:15 | disposition home or self-care (01) ==
LOC: JD.ED 15:07
DX: R19.7 Diarrhea, unspecified (principal); R10.84 Generalized abdominal pain; R11.10 Vomiting, unspecified; Z90.49 Acquired absence of other specified parts of digestive tract
CPT/HCPCS: 36415; 80053; 81001; 83690; 85025; 96361; 96374; 96375; 99284; J1170; J2405; J2765; J7030; 99283

== ENCOUNTER 2019-05-19 08:14 | Emergency (ER) | payer MEDICAID ==
[2019-05-19] MEDS ORDERED: HYDROmorphone 1 MG/ML Syringe IVPUSH STA (09:00)
[2019-05-19] MEDS ORDERED: Alum Hydrox/Mag Hydrox/Simeth 30 ML, Lidocaine 2% 15 ML PO ONE ×2 (09:02)
[2019-05-19] MEDS ORDERED: Metoclopramide 10 MG/2 ML SDV IVPUSH ONE (09:03)
[2019-05-19] MEDS: Sodium Chloride 0.9% 1,000 ML IV SCH ×2 (09:10→10:39)
--- NOTE | 2019-05-19 09:16 | EDM.PDOC ---
ED HPI GENERAL MEDICAL PROBLEM - General Chief Complaint: Gastrointestinal Problem Stated Complaint: VOMITING Time Seen by Provider: 05/19/19 08:54 Source of Information: Reports: Patient, Old Records, RN Notes Reviewed History Limitations: Reports: No Limitations - History of Present Illness INITIAL COMMENTS - FREE TEXT/NARRATIVE: Patient is a 28-year-old female who presents to the ED for the evaluation of vomiting and abdominal pain. 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 She notes she is not been able to keep anything down for food or water since then. The patient notes that she has pain all over her abdomen and she notes that the vomiting and abdominal pain, at the same time, not one shows up before the other. She does not note anything that makes this necessarily better or worse. She states she has had a fever and chills, she does have a low-grade fever at time of triage 99.9 F. She denies any problems with urination. The patient did have a recent oophorectomy in February, and has been seen 3 times in the ER since then for abdominal pain and vomiting. She had a CT done in February shortly after the procedure, but has not had any imaging since then. Patient denies being on any regular medication, or having any allergies. 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), Other (See Below) Other COMMUTATOR INSPECTOR History: HPV - Past Surgical History GI Surgical History: Reports: Appendectomy Female Surgical History: Reports: Other (See Below) Other Female Surgeries/Procedures: R ovary removed 02/2019 Social & Family History - Family History Family Medical History: Noncontributory - Tobacco Use Smoking Status *Q: Current Every Day Smoker Years of Tobacco use: 10 Packs/Tins Daily: 0.5 - Caffeine Use Caffeine Use: Reports: None - Recreational Drug Use Recreational Drug Use: No - Living Situation & Occupation Living situation: Reports: Single, Alone Occupation: Unemployed ED ROS GENERAL - Review of Systems Review Of Systems: See Below Constitutional: Reports: Fever, Chills Respiratory: Denies: Shortness of Breath Cardiovascular: Denies: Chest Pain GI/Abdominal: Reports: Abdominal Pain (generalized), Diarrhea, Nausea, Vomiting : Denies: Dysuria, Frequency, Urgency ED EXAM, GI/ABD - Physical Exam Exam: See Below Exam Limited By: No Limitations General Appearance: Alert, WD/WN, No Apparent Distress (pt is very dramatic, she appears to be in a moderate amount of pain) Eyes: Bilateral: Normal Appearance Throat/Mouth: Normal Inspection, Normal Lips, Normal Teeth, Normal Gums, Normal Oropharynx, Normal Voice, No Airway Compromise Respiratory/Chest: No Respiratory Distress, Lungs Clear, Normal Breath Sounds, No Accessory Muscle Use, Chest Non-Tender Cardiovascular: Normal Peripheral Pulses, Regular Rate, Rhythm, No Edema, No Murmur GI/Abdominal Exam: Normal Bowel Sounds, Soft, No Distention, No Mass, Tender ( suprapubic mainly, but states that she is tender all over her abdomen) (Female) Exam: Normal External Exam, Cervical Discharge (moderate amount of thick white discharge noted around the cervix), Cervix Motion Tenderness, Other (chandelier size is positive on R bimanual exam) Back Exam: No: CVA Tenderness (L), CVA Tenderness (R) Extremities: Normal Inspection, Normal Range of Motion, Normal Capillary Refill Neurological: Alert, Normal Cognition, No Motor/Sensory Deficits Psychiatric: Other (pt is very dramatic in presentation, she states " why do i have to answer these questions again, I just told the nurse my story.") Skin Exam: Warm, Dry, Intact, Normal Color, No Rash Course - Vital Signs Last Recorded V/S: Last Vital Signs Temp 99.9 F 05/19/19 08:49 Pulse 89 05/19/19 08:49 Resp 22 H 05/19/19 08:49 BP 144/109 H 05/19/19 08:49 Pulse Ox 100 05/19/19 08:49 - Orders/Labs/Meds Orders: Active Orders 24 hr Category Date Time Status CULTURE URINE [RM] Routine Lab 05/19/19 10:25 Received Sodium Chloride 0.9% [Normal Saline] 1,000 ml Med 05/19/19 09:00 Active IV ASDIRECTED Medication Orders Sodium Chloride (Normal Saline) 1,000 mls @ 999 mls/hr IV ASDIRECTED JACQUELINE Last Admin: 05/19/19 10:39 Dose: 999 mls/hr Infusion: 05/19/19 10:11 Dose: 999 mls/hr Admin: 05/19/19 09:10 Dose: 999 mls/hr Labs: Laboratory Tests 05/19/19 05/19/19 05/19/19 Range/Units 09:10 09:10 10:25 WBC 20.77 H (3.98-10.04) K/mm3 RBC 4.67 (3.98-5.22) M/mm3 Hgb 12.5 (11.2-15.7) gm/dl Hct 39.5 (34.1-44.9) % MCV 84.6 (79.4-94.8) fl MCH 26.8 (25.6-32.2) pg MCHC 31.6 L (32.2-35.5) g/dl RDW Std Deviation 40.2 (36.4-46.3) fL Plt Count 551 H (182-369) K/mm3 MPV 8.5 L (9.4-12.3) fl Neutrophils % (Manual) 83 H (40-60) % Band Neutrophils % 0 (0-10) % Lymphocytes % (Manual) 11 L (20-40) % Atypical Lymphs % 0 % Monocytes % (Manual) 4 (2-10) % Eosinophils % (Manual) 0 L (0.7-5.8) % Basophils % (Manual) 2 H (0.1-1.2) Platelet Estimate Increased RBC Morph Comment Normal Sodium 137 (136-145) mEq/L Potassium 3.9 (3.5-5.1) mEq/L Chloride 101 (98-107) mEq/L Carbon Dioxide 20 L (21-32) mEq/L Anion Gap 19.9 H (5-15) BUN 14 (7-18) mg/dL Creatinine 0.9 (0.55-1.02) mg/dL Est Cr Clr Drug Dosing 74.92 mL/min Estimated GFR (MDRD) > 60 (>60) mL/min BUN/Creatinine Ratio 15.6 (14-18) Glucose 126 H (74-106) mg/dL Calcium 9.2 (8.5-10.1) mg/dL Total Bilirubin 0.7 (0.2-1.0) mg/dL AST 27 (15-37) U/L ALT 28 (14-59) U/L Alkaline Phosphatase 23 L (46-116) U/L Total Protein 8.4 H (6.4-8.2) g/dl Albumin 4.6 (3.4-5.0) g/dl Globulin 3.8 gm/dL Albumin/Globulin Ratio 1.2 (1-2) Urine Color Yellow (Yellow) Urine Appearance Slt cloudy H (Clear) Urine pH 7.5 (5.0-8.0) Ur Specific [place] 1.020 (1.005-1.030) Urine Protein 2+ H (Negative) Urine Glucose (UA) 1+ H (Negative) Urine Ketones Trace H (Negative) Urine Occult Blood Trace-intact H (Negative) Urine Nitrite Negative (Negative) Urine Bilirubin Negative (Negative) Urine Urobilinogen 0.2 (0.2-1.0) Ur Leukocyte Esterase Negative (Negative) Urine RBC 0-5 (0-5) /hpf Urine WBC 0-5 (0-5) /hpf Ur Epithelial Cells 0-5 (0-5) /hpf Urine Bacteria Few (FEW) /hpf Urine Mucus Moderate H (FEW) /hpf Urine HCG, Qual (NEGATIVE) Urine Opiates Screen (RZFQIX=718) Ur Buprenorphine Scrn (CUTOFF=10) Ur Oxycodone Screen (TML4DG=145) Urine Methadone Screen (DAILDR=094) Ur Propoxyphene Screen (OBEUGB=740) Ur Barbiturates Screen (RYSOYN=930) Ur Tricyclics Screen (IKCPPN=868) Ur Phencyclidine Scrn (CUTOFF=25) Ur Amphetamine Screen (DHCSYV=383) U Methamphetamines Scrn (VLUJON=635) U Benzodiazepines Scrn (FZCLSD=005) U Cocaine Metab Screen (HPHYAK=112) U Marijuana (THC) Screen (CUTOFF=50) C trachomatis DNA (PCR) N gonorrhoeae DNA (PCR) 05/19/19 05/19/19 05/19/19 Range/Units 10:25 10:25 13:25 WBC (3.98-10.04) K/mm3 RBC (3.98-5.22) M/mm3 Hgb (11.2-15.7) gm/dl Hct (34.1-44.9) % MCV (79.4-94.8) fl MCH (25.6-32.2) pg MCHC (32.2-35.5) g/dl RDW Std Deviation (36.4-46.3) fL Plt Count (182-369) K/mm3 MPV (9.4-12.3) fl Neutrophils % (Manual) (40-60) % Band Neutrophils % (0-10) % Lymphocytes % (Manual) (20-40) % Atypical Lymphs % % Monocytes % (Manual) (2-10) % Eosinophils % (Manual) (0.7-5.8) % Basophils % (Manual) (0.1-1.2) Platelet Estimate RBC Morph Comment Sodium (136-145) mEq/L Potassium (3.5-5.1) mEq/L Chloride (98-107) mEq/L Carbon Dioxide (21-32) mEq/L Anion Gap (5-15) BUN (7-18) mg/dL Creatinine (0.55-1.02) mg/dL Est Cr Clr Drug Dosing mL/min Estimated GFR (MDRD) (>60) mL/min BUN/Creatinine Ratio (14-18) Glucose (74-106) mg/dL Calcium (8.5-10.1) mg/dL Total Bilirubin (0.2-1.0) mg/dL AST (15-37) U/L ALT (14-59) U/L Alkaline Phosphatase (46-116) U/L Total Protein (6.4-8.2) g/dl Albumin (3.4-5.0) g/dl Globulin gm/dL Albumin/Globulin Ratio (1-2) Urine Color (Yellow) Urine Appearance (Clear) Urine pH (5.0-8.0) Ur Specific [place] (1.005-1.030) Urine Protein (Negative) Urine Glucose (UA) (Negative) Urine Ketones (Negative) Urine Occult Blood (Negative) Urine Nitrite (Negative) Urine Bilirubin (Negative) Urine Urobilinogen (0.2-1.0) Ur Leukocyte Esterase (Negative) Urine RBC (0-5) /hpf Urine WBC (0-5) /hpf Ur Epithelial Cells (0-5) /hpf Urine Bacteria (FEW) /hpf Urine Mucus (FEW) /hpf Urine HCG, Qual Negative (NEGATIVE) Urine Opiates Screen Presumptive positive H (AWIUXJ=695) Ur Buprenorphine Scrn Negative (CUTOFF=10) Ur Oxycodone Screen Negative (DEY5IP=083) Urine Methadone Screen Negative (EEPJPM=504) Ur Propoxyphene Screen Negative (VENSQT=676) Ur Barbiturates Screen Negative (WCTVTT=019) Ur Tricyclics Screen Negative (LUFUNA=505) Ur Phencyclidine Scrn Negative (CUTOFF=25) Ur Amphetamine Screen Negative (IAGMON=153) U Methamphetamines Scrn Negative (EFYRWG=714) U Benzodiazepines Scrn Negative (WLMHFH=376) U Cocaine Metab Screen Negative (VCTIRM=601) U Marijuana (THC) Screen Presumptive positive H (CUTOFF=50) C trachomatis DNA (PCR) Not detected N gonorrhoeae DNA (PCR) Not detected Meds: Medications Generic Name Dose Route Start Last Admin Trade Name Freq PRN Reason Stop Dose Admin Sodium Chloride 1,000 mls @ 999 mls/hr 05/19/19 09:00 05/19/19 10:39 Normal Saline IV 999 mls/hr ASDIRECTED JACQUELINE Administration Discontinued Medications Generic Name Dose Route Start Last Admin Trade Name Freq PRN Reason Stop Dose Admin Al Hydroxide/Mg Hydroxide 30 0 ml 05/19/19 09:02 05/19/19 09:54 ml/ Lidocaine HCl 15 ml PO 05/19/19 09:03 45 ml ONETIME ONE Administration Hydromorphone HCl 1 mg 05/19/19 09:00 05/19/19 09:11 Dilaudid IVPUSH 05/19/19 09:01 0.5 mg ONETIME STA Administration Sodium Chloride 1,000 mls @ 999 mls/hr 05/19/19 10:36 05/19/19 10:47 Normal Saline IV 05/19/19 11:36 Not Given ONETIME ONE Iopamidol 100 ml 05/19/19 11:33 01/21/20 11:35 Isovue-300 (61%) IVPUSH 05/19/19 11:34 100 ml ONETIME ONE Administration Metoclopramide HCl 10 mg 05/19/19 09:03 05/19/19 09:10 Reglan IVPUSH 05/19/19 09:04 10 mg ONETIME ONE Administration Ondansetron HCl 4 mg 05/19/19 10:26 05/19/19 10:35 Zofran IVPUSH 05/19/19 10:27 4 mg ONETIME ONE Administration Pantoprazole Sodium 40 mg 05/19/19 15:07 05/19/19 15:48 Protonix Iv IVPUSH 05/19/19 15:08 40 mg ONETIME ONE Administration - Re-Assessments/Exams Free Text/Narrative Re-Assessment/Exam: 05/19/19 09:19 Patient presents to the ED for the evaluation of abdominal pain and vomiting. She is slightly febrile at time of triage, and appears to be actively retching, however the triage nurse states that she was gagging herself at the time of triage. Nonetheless IV will be placed, IV fluids to be given, she will be given 4 mg of Zofran, 1 mg Dilaudid, 0.5 mg at a time, urinalysis, urine drug screen, urine hCG, CBC and CMP with a KUB for initial management. 05/19/19 10:36 RN notifies me that the patient is still somewhat nauseous, she was given another 4 mg of Zofran, and some of her labs are started result and her white blood cell count is markedly elevated at 20,000, I did cancel the previous abdomen x-ray and have ordered an abdomen pelvis CT at this time for further evaluation. 05/19/19 13:28 CT is back, demonstrates a 5.1 cm cyst within the left pelvis most likely ovarian in nature, did not comment on if it was simple or complex. He did note a small amount of fluid around the cyst as well within the cul-de-sac presumably due to cyst leakage. And other incidental findings. I did relay this information to her COMMUTATOR INSPECTOR, Dr. Ying, and she recommends screening for gonorrhea chlamydia and a wet prep for further evaluation. I did at this time perform a pelvic exam, and obtain the swabs and sent to lab for evaluation. Patient states she is feeling much better, however her throat is kind of sore. The pelvic exam was notable for a moderate amount of thick white discharge, patient did have quite a bit of pain with speculum insertion, and her chandelier sign was positive on the right lower pelvis as well. Which is suspected may be recurrent PID or PID that has not resolved. Patient states that she did complete her course of oral medications as previously prescribed. Departure - Departure Time of Disposition: 16:02 Disposition: Home, Self-Care 01 Condition: Fair Clinical Impression: Nausea and vomiting in adult, BV (bacterial vaginosis) - Discharge Information *PRESCRIPTION DRUG MONITORING PROGRAM REVIEWED*: No *COPY OF PRESCRIPTION DRUG MONITORING REPORT IN PATIENT NADIA: No Prescriptions: Clindamycin Phosphate [Clindesse] 5 gm VG QPM #7 applicful Instructions: Bacterial Vaginosis, [id number] Referrals: PCP,None [Primary Care Provider] - Forms: ED Department Discharge Additional Instructions: You were evaluated in the ER today regarding your nausea and vomiting and abdominal pain. You had a CT done in the ER today, which demonstrated a 5.1 cm cyst on your left ovary, this was an incidental finding, and would not be the cause of your abdominal pain. You had some laboratory evaluation as well, your vaginal swab demonstrated that you have bacterial vaginosis, this is an overgrowth of the normal bacterial chanda in your vagina, this is treated by clindamycin, 1 applicatorful in your vagina at night for 7 days. You were also given IV fluids, IV antinausea medication, and IV pain medication in the ER today. This seemed to help relieve your symptoms as well. You were given a prescription for Zofran as well, please take 1 tab dissolvable under your tongue every 8 hours as needed for nausea. Last dose of Zofran was at 10:30, so you may repeat your dose at 6:30 PM. Recommend you call your COMMUTATOR INSPECTOR, Dr. Ying, and have a follow-up within the next week for reevaluation of your symptoms and make sure everything is getting better as expected. Please return to the ER however if your symptoms change or worsen. Sepsis Event Note - Evaluation Sepsis Screening Result: Possible Sepsis Risk - Focused Exam Vital Signs: Vital Signs Temp Pulse Resp BP Pulse Ox 05/19/19 08:49 99.9 F 89 22 H 144/109 H 100 Date Exam was Performed: 05/19/19 Time Exam was Performed: 16:02 - My Orders Last 24 Hours: My Active Orders 05/19/19 09:00 Sodium Chloride 0.9% [Normal Saline] 1,000 ml IV ASDIRECTED 05/19/19 10:25 CULTURE URINE [RM] Routine - Assessment/Plan Last 24 Hours: My Active Orders 05/19/19 09:00 Sodium Chloride 0.9% [Normal Saline] 1,000 ml IV ASDIRECTED 05/19/19 10:25 CULTURE URINE [RM] Routine
[2019-05-19] MEDS ORDERED: Ondansetron 4 MG/2 ML SDV IVPUSH ONE (10:26)
[2019-05-19] MEDS ORDERED: Sodium Chloride 0.9% 1,000 ML IV ONE (10:36)
[2019-05-19] MEDS ORDERED: Iopamidol 612 MG/ML 100 ML Bottle IVPUSH ONE (11:33)
--- NOTE | 2019-05-19 12:48 | CT ---
CT abdomen and pelvis Technique: Multiple axial sections were obtained from above the dome of the diaphragm inferiorly through the pubic symphysis. Intravenous contrast was utilized. No oral contrast has been given. Comparison: Prior CT abdomen and pelvis exam of 03/23/19. Findings: Visualized lung bases show nothing acute. Liver contains no focal parenchymal abnormality. Gallbladder contains no calcified gallstones. Spleen appears within normal limits. Adrenal glands show no nodule. Pancreas appears within normal limits. Kidneys show symmetric contrast enhancement. Small cortical lesion is noted within the mid to upper left kidney measuring about 3 mm in size which is too small to characterize by Hounsfield unit measurements. Second lesion is seen more inferiorly within the left kidney also measuring about 3 mm. These are most likely due to small cysts. No hydronephrosis is seen of either kidney. Aorta shows no aneurysm. No retroperitoneal adenopathy is seen. No mesenteric abnormalities are appreciated. Appendix not definitely visualized. There is a cyst being seen within the left side of the pelvis measuring 5.1 cm. Small amount of fluid is seen around this cyst as well as small amount of fluid within the cul-de-sac. This fluid is likely from cyst leakage. No additional pelvic abnormality is seen. Bone window settings were reviewed which appear within normal limits for the patient's age. Impression: 1. 5.1 cm cyst within the left pelvis most likely ovarian in location. Small amount of fluid around this cyst as well as within the cul-de-sac presumably due to cyst leakage. 2. Other findings as noted above believed to be incidental. Diagnostic code #3 This report was dictated in [place] Standard Time
[2019-05-19] MEDS ORDERED: Pantoprazole 40 MG Vial IVPUSH ONE (15:07)
[2019-05-19 15:17] LABS: C. TRACHOMATIS BY PCR NOT DETECTED; N. GONORRHOEAE BY PCR NOT DETECTED
[2019-05-19 16:33] VITALS: BP 115/85; PULSE 66
== END 2019-05-19 16:27 | disposition home or self-care (01) ==
LOC: JD.ED 08:14
DX: R11.2 Nausea with vomiting, unspecified (principal); N76.0 Acute vaginitis; B96.89 Other specified bacterial agents as the cause of diseases classified elsewhere; R10.30 Lower abdominal pain, unspecified; F17.210 Nicotine dependence, cigarettes, uncomplicated; Z90.49 Acquired absence of other specified parts of digestive tract
CPT/HCPCS: 36415; 74177; 80053; 80306; 81001; 81025; 85007; 85027; 87086; 87210; 87491; 87591; 87808; 96361; 96374; 96375; 99284; A9270; C9113; J1170; J2405; J2765; J7030; Q9967

== ENCOUNTER 2019-09-20 21:42 | Emergency (ER) | payer MEDICAID ==
[2019-09-20 21:53] VITALS: BP 135/96; PULSE 92
--- NOTE | 2019-09-20 22:49 | EDM.PDOC ---
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 Stated Complaint: VAGINAL BLEEDING 23 DAYS Time Seen by Provider: 09/20/19 21:53 - Related Data Allergies Allergy/AdvReac Type Severity Reaction Status Date / Time No Known Allergies Allergy Verified 05/19/19 08:52 Home Meds: Home Meds Ondansetron [Zofran ODT] 4 mg PO Q8H PRN #12 tab.dis 05/19/19 [Rx] metroNIDAZOLE [Metrogel-Vaginal] 70 gm VG DAILY #5 gel.w.appl 06/09/19 [Rx] ED EXAM, RENAL/ - Physical Exam Exam: See Below Exam Limited By: No Limitations General Appearance: Alert, WD/WN, No Apparent Distress Eye Exam: Bilateral Eye: EOMI, Normal Inspection Ears: Normal External Exam, Hearing Grossly Normal Nose: Normal Inspection Throat/Mouth: Normal Inspection, Normal Lips, Normal Voice, No Airway Compromise Head: Atraumatic, Normocephalic Neck: Normal Inspection, Full Range of Motion Respiratory/Chest: No Respiratory Distress, Lungs Clear, Normal Breath Sounds, No Accessory Muscle Use Cardiovascular: Normal Peripheral Pulses, Regular Rate, Rhythm, No Edema, No Gallop, No JVD, No Murmur, No Rub GI/Abdominal: Normal Bowel Sounds, Soft, No Organomegaly, No Distention, No Abnormal Bruit, No Mass, Tender (suprapubic only) (Female) Exam: Deferred Rectal (Female) Exam: Deferred Back Exam: Normal Inspection, Full Range of Motion. No: CVA Tenderness (L), CVA Tenderness (R) Extremities: Normal Inspection, Normal Range of Motion, No Pedal Edema, Normal Capillary Refill Neurological: Alert, Oriented, Normal Cognition, No Motor/Sensory Deficits Psychiatric: Anxious Skin Exam: Warm, Dry, Intact, Normal Color, No Rash Course - Vital Signs Last Recorded V/S: Last Vital Signs Temp 97.9 F 09/20/19 21:48 Pulse 92 09/20/19 21:48 Resp 20 09/20/19 21:48 BP 135/96 H 09/20/19 21:48 Pulse Ox 100 09/20/19 21:48 - Orders/Labs/Meds Orders: Active Orders 24 hr Category Date Time Status Orthostatic Vital Signs [RC] STAT Care 09/20/19 22:30 Active Transvaginal Non OB [US] Stat Exams 09/20/19 22:31 Ordered - Re-Assessments/Exams Free Text/Narrative Re-Assessment/Exam: 09/20/19 23:50 I was present with Nidhi during the history and physical, and personally examined the patient. I have reviewed Nidhi's documentation. As above, the patient was difficult, in that she did not want to be asked a number of questions, telling us that everything we needed was already in the medical record, and she did not feel that a work-up other than an ultrasound was necessary. I explained to the patient that in order to arrive at an appropriate diagnosis, a pelvic exam, blood work, a urinalysis, orthostatics, and a pelvic ultrasound would be needed. The patient initially agreed, but a few minutes later was seen leaving the ED. Departure - Departure Time of Disposition: 22:40 Disposition: Eloped 07 Condition: Good Clinical Impression: Dysfunctional uterine bleeding - Discharge Information *PRESCRIPTION DRUG MONITORING PROGRAM REVIEWED*: Not Applicable *COPY OF PRESCRIPTION DRUG MONITORING REPORT IN PATIENT NADIA: Not Applicable Referrals: PCP,None [Primary Care Provider] - Brigida Ying MD [Physician] - Forms: ED Department Discharge Sepsis Event Note - Focused Exam Vital Signs: Vital Signs Temp Pulse Resp BP Pulse Ox 09/20/19 21:48 97.9 F 92 20 135/96 H 100 Date Exam was Performed: 09/20/19 Time Exam was Performed: 23:53 <Nidhi Guy - Last Filed: 09/20/19 23:55> ED HPI GENERAL MEDICAL PROBLEM - General Source of Information: Reports: Patient History Limitations: Reports: Uncooperative (Patient expressed she did not like to answer so many questions. ) - History of Present Illness INITIAL COMMENTS - FREE TEXT/NARRATIVE: Obtaining a history from the patient was difficult, as she was emotional and reluctant to answer "so many questions". At one point the patient stated "You don't need any blood. You just need an ultrasound and get your answer". Ms. Morse is a 28 year old woman with a past medical history significant for a right salpingo-oophorectomy in February 2019, who now presents to the ED complaining of vaginal bleeding and lower abdominal cramps since August 28, 2019. She states that she is bleeding one pad per hour including through the night. She describes her abdominal pain as constant "dropping stabbing pain". She states her pain is 10/10 and is unchanged since August 28, 2019. The patient states she had a normal 7-day menses that ended on July 17. She subsequently had 10 days of spotting. She saw her Live Games Dealer in July. According to the patient, "She didn't do nothing because she doesn't care". The patient stated that she stopped bleeding until August 28, 2019 and that she has been bleeding ever since. She then saw her Live Games Dealer again about one week ago and was prescribed control pills, one tablet TID, but the patient states she took it for one day and then discontinued them due to nausea and vomiting. She did not call her Live Games Dealer or follow up. The patient has had chronic nausea for which she takes an occasional Zofran. She vomits once per day. She has had a poor appetite for one week and has eaten very little over the past three days. She has been feeling dizzy, weak, and fatigue for the past week. She has had watery diarrhea, 5 times per day for the past 2 days. Otherwise, she denies PINK,cough, cold, nasal congestion, urinary symptoms, leg and back pain. She has been taking Advil PM every morning and then every 4 to 5 hours throughout the day, but it is not longer helping. The patient does not have a PCP. Her waiter/waitress first class is Dr. Brigida Ying. 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 Feb 2019) Social & Family History - Family History Family Medical History: Noncontributory - Tobacco Use Smoking Status *Q: Current Every Day Smoker Tobacco Use Within Last Twelve Months: Cigarettes Years of Tobacco use: 8 Packs/Tins Daily: 0.3 - Caffeine Use Caffeine Use: Reports: Soda - Alcohol Use Alcohol Use History: Yes Alcohol Use Frequency: Socially - Recreational Drug Use Recreational Drug Use: Yes Drug Use in Last 12 Months: Yes Recreational Drug Type: Reports: Marijuana/Hashish (smokes daily) - Living Situation & Occupation Living situation: Reports: Single, Alone Occupation: Unemployed ED ROS GENERAL - Review of Systems Review Of Systems: Comprehensive ROS is negative, except as noted in HPI. Course - Re-Assessments/Exams Free Text/Narrative Re-Assessment/Exam: 09/20/19 22:26 As above, the patient presents with vaginal bleed since August 28, 2019. Ordered blood work, IV fluids transvaginal US, and orthostatic vitals. 09/20/19 22:40 The patient was seen leaving the ED without waiting for paperwork. 09/20/19 23:55 Sepsis Event Note - Evaluation Sepsis Screening Result: No Definite Risk - Focused Exam Date Exam was Performed: 09/20/19 Time Exam was Performed: 23:54
== END 2019-09-20 22:36 | disposition left against medical advice (07) ==
LOC: JD.ED 21:42
DX: N93.8 Other specified abnormal uterine and vaginal bleeding (principal); F17.210 Nicotine dependence, cigarettes, uncomplicated; Z90.49 Acquired absence of other specified parts of digestive tract
CPT/HCPCS: 99282; 99283

== ENCOUNTER 2020-01-22 10:13 | Emergency (ER) | payer MEDICAID ==
[2020-01-22 10:44] VITALS: BP 142/82; PULSE 87
--- NOTE | 2020-01-22 11:09 | EDM.PDOC ---
ED HPI GENERAL MEDICAL PROBLEM - General Chief Complaint: Eye Problems Stated Complaint: L EYE INJURY Time Seen by Provider: 01/22/20 11:09 Source of Information: Reports: Patient History Limitations: Reports: No Limitations - History of Present Illness INITIAL COMMENTS - FREE TEXT/NARRATIVE: See dictation Left Eye Pain Score (Numeric/FACES): 8 - Related Data Allergies Allergy/AdvReac Type Severity Reaction Status Date / Time No Known Allergies Allergy Verified 01/22/20 10:44 Home Meds: Home Meds Ondansetron [Zofran ODT] 4 mg PO Q8H PRN #12 tab.dis 05/19/19 [Rx] metroNIDAZOLE [Metrogel-Vaginal] 70 gm VG DAILY #5 gel.w.appl 06/09/19 [Rx] Past Medical History - Past Health History Medical/Surgical History: Denies Medical/Surgical History HEENT History: Reports: Other (See Below) Other HEENT History: dental issues Genitourinary History: Reports: STD, Other (See Below) Other Genitourinary History: ovarian cyst 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, Other (See Below) Other COPIER AND PRINTER FIELD TECHNICIAN History: HPV - Infectious Disease History Infectious Disease History: Reports: Human Papilloma Virus (HPV) - Past Surgical History GI Surgical History: Reports: Appendectomy Female Surgical History: Reports: Salpingo-Oophorectomy Social & Family History - Family History Family Medical History: Noncontributory - Tobacco Use Smoking Status *Q: Never Smoker - Caffeine Use Caffeine Use: Reports: Soda - Living Situation & Occupation Living situation: Reports: Single, Alone Occupation: Unemployed ED ROS GENERAL - Review of Systems Reason Not Obtained: See dictation ED EXAM GENERAL W FULL EYE - Physical Exam Exam: See Below Text/Narrative:: See dictation Course - Vital Signs Last Recorded V/S: Last Vital Signs Temp 36.3 C 01/22/20 10:41 Pulse 87 01/22/20 10:41 Resp 16 01/22/20 10:41 BP 142/82 H 01/22/20 10:41 Pulse Ox 98 01/22/20 10:41 Departure - Departure Time of Disposition: 13:10 Condition: Fair Clinical Impression: Facial injury - Discharge Information Referrals: PCP,None [Primary Care Provider] - Forms: ED Department Discharge Sepsis Event Note (ED) - Evaluation Sepsis Screening Result: No Definite Risk
--- NOTE | 2020-01-22 14:16 | CT ---
CT facial bones Technique: Multiple axial sections were obtained through the facial bones. Reconstructed coronal and sagittal images were obtained. Findings: Fracture is identified within the nasal bone which is mildly comminuted and mildly displaced. Equivocal nasal septal fracture is noted. No additional fracture is seen. Minimal mucosal thickening within the right maxillary sinus is noted. Other paranasal sinuses are clear. Right and left globes are symmetric. Dental structures are not optimally seen due to artifact from metal fillings. Impression: 1. Mildly displaced and mildly comminuted nasal bone fracture. 2. Equivocal nasal septal fracture. 3. No other acute finding is seen. Diagnostic code #3 Agree with preliminary report issued by [facility] ([facility] preliminary report dictated on 01/17/20, 1:41 PM Central Daylight Time) Study was dictated in MDT
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
== END 2020-01-22 13:22 ==
LOC: JD.ED 10:13
DX: S02.2XXA Fracture of nasal bones, initial encounter for closed fracture (principal); W50.0XXA Accidental hit or strike by another person, initial encounter
CPT/HCPCS: 70486; 70486-26; 99283-25